=== PATIENT | female | born 1935 | race Caucasian/White ===

== ENCOUNTER 2018-06-16 06:37 | Emergency (ER) | payer MEDICARE ==
[~2018-06-16] VITALS: Ht 160 cm; Wt 88.7 kg
[~2018-06-16 06:37] MED LIST: ACTOS15 MG PO; AMOXICILLIN 50500 MG PO; ASA81BEC PO; ASPIRIN325; AVANDIA; AZITHROMYCIN 2250 MG PO; BACTRIM DS TAB1 EACH PO; BENAZEPRIL HCL20 MG; CALCIUM 600 +1 EAC6 PO; CARVEDILOL25 MG PO; CENTRUM SILVER1 EAC4 PO; CINNAMON500 MG PO; CIPRO500 MG PO; COZAAR 50 MG TA50 M1 PO; COZAAR100 MG PO; CRESTOR20 MG PO; FISH OIL 1,001000 M2 PO; FISHOIL; FUROSEMIDE 20 M20 M1 PO; FUROSEMIDE 80 M80 M1; GLIMEPIRIDE4 MG PO; GLIPIZIDE ER5 MG PO; IBUPROFEN 200200 M1 PO; KEFLEX500 MG PO; KLOR-CON 1010 MEQ PO; LEVAQUIN 500 M500 M1 PO; LEVAQUIN 500 M500 M2 PO; LIDODERM 5%1 PATC1 TRANSDERM; LIPITOR10 MG PO; METFORMIN HCL500 MG PO; MUCINEX TA600 MG/TA2 PO; PLAVIX 75 MG TA75 MG; SORINE 80 MG TA80 M1 PO; SYNTHROID100 MCG PO; SYNTHROID75 MCG PO; TOPROL XL25 MG; ULTRACET TABLET1 TAB PO; XARELTO15 MG PO; ZOFRAN ODT4 MG DISSOLVE; ZOFRAN ODT4 MG PO
[2018-06-16 07:07] LABS: ABSOLUTE EOSINOPHILS 0.2 thou/uL (0.0-0.7); ABSOLUTE LYMPHOCYTES 1.8 thou/uL (0.8-5.3); ABSOLUTE MONOCYTES 0.7 thou/uL (0.0-1.2); ABSOLUTE NEUTROPHILS 3.4 thou/uL (1.6-8.1); BASOPHILS 0.4 %; EOSINOPHILS 2.8 %; HEMATOCRIT 33.5 % (37.0-47.0); HEMOGLOBIN 11.4 gm/dL (12.0-15.0); LYMPHOCYTES 29.8 %; MCH 34.9 pg (26.0-34.0); MCHC 34.1 g/dL (28.0-37.0); MCV 102.3 fL (80.0-100.0); MONOCYTES 11.4 %; MPV 9.2 fl. (7.2-11.1); NUCLEATED RBCS 0 /100WBC; PLATELET COUNT* 148 thou/uL (150-400); POLYS 55.6 %; RBC 3.28 mil/uL (4.20-5.00); RDW-CV 13.6 % (10.5-14.5); WBC 6.1 thou/uL (4.0-11.0)
[2018-06-16 07:14] LABS: URINE BILIRUBIN NEGATIVE (Negative); URINE BLOOD TRACE (Negative); URINE CLARITY CLEAR; URINE COLOR YELLOW; URINE GLUCOSE-RANDOM NEGATIVE (Negative); URINE KETONES NEGATIVE (Negative); URINE LEUKOCYTES-REFLEX 1+ (Negative); URINE PROTEIN NEGATIVE (Negative); URINE UROBILINOGEN 0.2 E.U./dl (0.2-1.0)
[2018-06-16 07:15] LABS: URINE NITRITE-REFLEX POSITIVE (Negative)
[2018-06-16 07:15] LABS: ALBUMIN 3.3 g/dL (3.4-5.0); CREATININE 1.4 mg/dL (0.6-1.3); POTASSIUM 4.3 mmol/L (3.5-5.1); TOTAL BILIRUBIN 0.6 mg/dL (<0.1-1.0); TOTAL PROTEIN 6.9 g/dL (6.4-8.2)
[2018-06-16] MEDS ORDERED: COZAAR 25 MG TA25 M1 PO (07:18)
[2018-06-16] MEDS ORDERED: AMARYL4 MG PO (07:19)
[2018-06-16] MEDS ORDERED: SENNA8.6 MG PO (07:19)
[2018-06-16] MEDS ORDERED: TYLENOL325 MG PO (07:19)
[2018-06-16] MEDS ORDERED: LANTUS100 UNIT/M SUBQ (07:20)
[2018-06-16] MEDS ORDERED: MUCINEX600 MG PO (07:20)
[2018-06-16] MEDS ORDERED: HUMALOG100 UNIT/1 SUBQ (07:21)
[2018-06-16] MEDS ORDERED: PROLOPRIM100 MG PO (07:21)
[2018-06-16] MEDS ORDERED: LASIX 20 MG TAB20 MG PO (07:21)
[2018-06-16 07:22] LABS: SQUAMOUS 0-3 Few /LPF (0-3)
[2018-06-16] MEDS ORDERED: KLOR-CON 1010 MEQ PO (07:22)
[2018-06-16] MEDS ORDERED: CRESTOR10 MG PO (07:22)
[2018-06-16 07:23] LABS: BACTERIA-REFLEX >30 Many /HPF (None Seen); CASTS None Seen /LPF (None Seen); CRYSTALS None Seen /LPF (None Seen); MUCUS 0-3 Light strn/LPF (None Seen); URINE RBC 0-2 Rare /HPF (0-2); URINE WBC-REFLEX 6-15 Few /HPF (0-5)
[2018-06-16] MEDS ORDERED: KEFLEX500 M1 PO (08:19)
[2018-06-16] MEDS ORDERED: AUGMENTIN 875-1 EACH PO (08:45)
[2018-06-16 09:28] VITALS: BP 167/91
--- NOTE | 2018-06-17 10:03 | EKG ---
[place] [address] ELECTROCARDIOGRAM REPORT Name: [facility]ANDA CAO [id number] Admission: 06/16/18 Attend Phys: Discharge: 06/16/18 Date of : 31 Report #: [id number] THIS REPORT FOR: //name// [facility] ED Test Date: 2018-06-16 Test Time: 07:15:08 Pat Name: WANDA CAO Department: Room: Gender: F Senior It Specialist: ASHLEY : 1935 Requested By: Noelle John Order Number: [id number] MD: Jose A Haley Measurements Intervals [place] Rate: 56 P: 53 TX: 54 QRS: 79 QRSD: 137 T: 25 QT: 473 QTc: 457 Interpretive Statements Sinus rhythm Atrial premature complexes in couplets Short TX interval Right bundle branch block Compared to ECG 01/30/2017 07:32:31 Atrial premature complex(es) now present Short TX interval now present Atrial fibrillation no longer present Electronically Signed On 06-17-2018 10:03:13 CDT by Jose A Haley [email or web address] <ELECTRONICALLY SIGNED> By: Jose A Haley MD, [facility] 06/17/18 1003 4 Jose A Haley MD, [facility] /EPI
== END 2018-06-16 09:28 | disposition home or self-care (01) ==
LOC: M.ERS 06:37
PROVIDERS: Emergency Medicine
DX: S51.012A Laceration without foreign body of left elbow, initial encounter (principal); N39.0 Urinary tract infection, site not specified; Z88.5 Allergy status to narcotic agent; W19.XXXA Unspecified fall, initial encounter; Y93.89 Activity, other specified; Y92.89 Other specified places as the place of occurrence of the external cause; Y99.8 Other external cause status